=== PATIENT | male | born 1950 | race Caucasian/White ===

== ENCOUNTER 2017-07-12 14:54 | Inpatient (IN) | payer OTHER, MEDICARE ==
[~2017-07-12] VITALS: Ht 175.3 cm; Wt 72.1 kg
[~2017-07-12 14:54] MED LIST: IBUP-1542 PO; TAMS0.4C2 PO
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
[2017-07-12] MEDS ORDERED: NITROGLYCERIN 2% 1 GM OINT PKT TD ONE (15:30)
[2017-07-12 15:37] LABS: BASOPHIL # 0.1 10^3/ul (0.0-0.1); BASOPHILS % 0.5 % (0.0-2.0); EOSINOPHILS # 0.1 10^3/ul (0.0-0.5); HEMATOCRIT 39.2 % (42.0-52.0); HEMOGLOBIN 12.8 g/dl (14.0-18.0); LYMPHOCYTES # 1.3 10^3/ul (0.8-2.9); LYMPHOCYTES % 9.6 % (15.0-51.0); MEAN CORPUSCULAR HEMOGLOBIN 30.5 pg (29.0-33.0); MEAN CORPUSCULAR HGB CONC 32.7 g/dl (32.0-37.0); MEAN CORPUSCULAR VOLUME 93.3 fl (82.0-101.0); MEAN PLATELET VOLUME 12.3 fl (7.4-10.4); MONOCYTES % 7.4 % (0.0-11.0); NEUTROPHILS % 80.9 % (39.0-77.0); PLATELET COUNT 192 10^3/UL (140-415); RED CELL DISTRIBUTION WIDTH 13.9 % (11.5-14.5)
[2017-07-12] MEDS ORDERED: ZOLP5TAB7 PO (15:46)
[2017-07-12] MEDS ORDERED: ATOR40TA68 PO (15:46)
[2017-07-12] MEDS ORDERED: METO-429 PO (15:47)
[2017-07-12 15:51] LABS: INR 1.09; PROTIME 14.1 Sec (12.2-14.2); PT RATIO 1.1
[2017-07-12 15:52] LABS: PARTIAL THROMBOPLASTIN TIME 30.2 Sec (25.0-35.0)
--- NOTE | 2017-07-12 16:03 | RADRPT ---
PROCEDURE: Chest Radiograph. CLINICAL INDICATION: Chest pain TECHNIQUE: Single frontal chest radiograph. COMPARISON: None available FINDINGS: The cardiomediastinal silhouette is within normal limits. Atherosclerotic calcifications are presen t. No infiltrate or effusion is seen. The bones are intact. IMPRESSION: 1. Unremarkable chest radiograph. RPTAT: KK .Alex Rich MD, MD Date Time Electronically viewed and signed by .Alex Rich MD, on 07/12/2017 16:03 .B/
[2017-07-12 16:24] LABS: ANION GAP 13 (8-16); BLOOD UREA NITROGEN 11 mg/dl (7-20); CALCIUM 9.4 mg/dl (8.4-10.2); CARBON DIOXIDE 26 mmol/L (21-31); CHLORIDE 105 mmol/L (97-110); CREATININE 0.87 mg/dl (0.61-1.24); GLUCOSE 120 mg/dl (70-220); POTASSIUM 4.5 mmol/L (3.5-5.1); SODIUM 139 mmol/L (135-144)
[2017-07-12 16:36] LABS: TROPONIN-I < 0.012 ng/ml (0.00-0.12)
[2017-07-12 17:06] LABS: BARBITURATES Negative (NEGATIVE); BENZODIAZEPINES Negative (NEGATIVE); CANNABINOIDS Negative (NEGATIVE); COCAINE Negative (NEGATIVE); OPIATES Negative (NEGATIVE)
--- NOTE | 2017-07-12 19:20 | HP ---
Date/Time of Note Date/Time of Note DATE: 07/12/17 TIME: 19:16 Assessment/Plan VTE Prophylaxis VTE Prophylaxis Intervention: SCD's Lines/Catheters IV Catheter Type (from Nrsg): Saline Lock Assessment/Plan Assessment/Plan 67 yo M with multiple CV risk factors presents with chest pain, prudent to r/o ACS PLAN ACS r/o with trops, tele cont home meds NRT TTE cardiology consult in AM for stress test HPI/ROS Admit Date/Time Admit Date/Time Hx of Present Illness CC chest pain HPI 67 yo M with pmhx htn, HL, tobacco abuse presents with 1 day of chest pain. States it began at 2am and woke him from sleep. Has never had chest pain like this before. Had some SOB which started this afternoon. PMH/Family/Social Social History lives in the community Smoking Status: Current every day smoker Exam/Review of Systems Vital Signs Vitals Vital Signs Date Time Temp Pulse Resp B/P Pulse Ox O2 Delivery O2 Flow Rate FiO2 07/12/17 17:42 42 16 119/49 99 Nasal Cannula 2.0 07/12/17 15:16 98.1 Exam Exam nad eomi bradycardic resp nonlabored abd soft no rashes no edema labs reviewed. WBCs a little high, cr and trop nl Labs Result Diagram: 07/12/17 1520 07/12/17 1520 JAMIE SHEPPARD MD Jul 12, 2017 19:20
[2017-07-12] MEDS ORDERED: DOCUSATE SODIUM 100 MG CAP PO PRN (19:30)
[2017-07-12] MEDS ORDERED: ACETAMINOPHEN 325 MG TAB PO PRN (19:30)
[2017-07-12] MEDS ORDERED: morphine 2 MG INJ IV PRN (19:30)
[2017-07-12] MEDS ORDERED: ZOLPIDEM 5 MG TAB PO PRN (19:30)
[2017-07-12] MEDS ORDERED: NACL 0.9% 3 ML SYG IV SCH (19:30)
[2017-07-12] MEDS ORDERED: HYDROCODONE/APAP (5/325) TAB PO PRN (19:30)
[2017-07-12] MEDS ORDERED: NICOTINE (21 MG/24 HR) PATCH TRANSDERM ONE (19:30)
[2017-07-12] MEDS ORDERED: ONDANSETRON 4 MG TAB PO PRN (19:30)
[2017-07-12 21:06] LABS: THYROID STIMULATING HORMONE 1.09 MIU/L (0.465-4.680)
[2017-07-12] MEDS: ATORVASTATIN 40 MG TAB PO SCH (21:12)
[2017-07-12] MEDS: TAMSULOSIN (SR) 0.4 MG CAP PO SCH (21:12)
[2017-07-12 22:26] LABS: CREATINE KINASE 29 IU/L (23-200)
[2017-07-12 22:39] LABS: CK-MB 0.49 ng/ml (0.0-2.4); TROPONIN-I < 0.012 ng/ml (0.00-0.12)
[2017-07-12 22:51] VITALS: PULSE 60
[2017-07-12 23:46] VITALS: PULSE 40
[2017-07-12 23:57] VITALS: BP 137/60; RESP 18
[2017-07-13] VITALS (13 sets, daily range): BP systolic 124–133; BP diastolic 50–78; PULSE 40–60; RESP 15–18; Ht 175.3 cm; Wt 72.1 kg
[2017-07-13] MEDS: ASPIRIN 81 MG TAB PO SCH (09:03)
[2017-07-13] MEDS: ENOXAPARIN 40 MG/0.4 ML SYG SC SCH (09:03)
--- NOTE | 2017-07-13 12:32 | RADRPT ---
Echocardiogram Report Patient Name: EPI JONES Gender: Male Date: 1950 Study Date: 13-Jul-2017 Celery Stripper: Ricky Rodriges [facility] Location: 5560 Ref. Physician: JAMIE SHEPPARD Quality: Adequate Procedures: Transthoracic echocardiogram with complete 2D, M-Mode, and doppler examination. Indications: Chest Pain. 2D/M Mode Doppler Measurement Value Normal Ranges Measurement Value Normal Ranges LVIDd 2D 4.7 3.5 - 5.6 cm AV Peak Jayson 1.1 m/sec LVIDs 2D 2.3 2.1 - 4.1 cm AV Peak PG 5.1 mmHg LVPWd 2D 0.9 0.6 - 1.1 cm LVOT Peak Jayson 1.0 m/sec IVSd 2D 0.9 0.6 - 1.1 cm LVOT Peak PG 3.8 mmHg AoR Diam 2D 3.4 2.0 - 3.7 cm MV E Peak Jayson 0.9 m/sec EDV 2D 103.2 cm3 MV A Peak Jayson 0.6 m/sec ESV 2D 11.8 cm3 MV E/A 1.6 LA Dimen 2D 4.0 2.3 - 4.0 cm MV Decel Time 213 msec MV Decel [place] 4 MV E/A 1.6 TR Peak Jayson 2.1 m/sec TR Peak PG 17.3 mmHg RVSP 27.0 mmHg Findings Left Ventricle: Normal left ventricular systolic function. Normal left ventricular cavity size. Normal left ventricular wall thickness. Ejection fraction is visually estimated at 65 %. Tissue Doppler/Mitral Doppler indices are within normal limits. Right Ventricle: Normal right ventricular size. Normal right ventricular systolic function. Left Atrium: The left atrium is normal in size. Right Atrium: The right atrium is normal in size. Mitral Valve: Normal appearance of the mitral valve. Mild mitral annular calcification. Trace mitral regurgitation. Aortic Valve: Normal appearance of the aortic valve. No significant aortic stenosis or insufficiency. Tricuspid Valve: Normal appearance of the tricuspid valve. Estimated peak PA systolic pressure 20 mmHg. There is trace tricuspid regurgitation. Pulmonic Valve: Pulmonic valve not well visualized. Pericardium: Normal pericardium with no significant pericardial effusion. Aorta: Normal aortic root. IVC: Normal size and normal respiratory collapse consistent with normal right atrial pressure. Conclusions 1.Normal left ventricular systolic function. Normal left ventricular cavity size. Normal left ventricular wall thickness. Ejection fraction is visually estimated at 65 %. Tissue Doppler/Mitral Doppler indices are within normal limits. 2.Normal appearance of the mitral valve. Mild mitral annular calcification. Trace mitral regurgitation. 3.Normal appearance of the aortic valve. No significant aortic stenosis or insufficiency. 4.Normal appearance of the tricuspid valve. Estimated peak PA systolic pressure 20 mmHg. There is trace tricuspid regurgitation. Electronically Signed By: Adriano Pimentel 13-Jul-2017 12:32:21 -0700 Patient Name: EPI JONES Study Date: 13-Jul-2017 [id number]
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
[2017-07-13] MEDS ORDERED: REGADENOSON 0.4 MG/5 ML SYG IV ONE (16:00)
--- NOTE | 2017-07-13 16:00 | PN ---
Date/Time of Note Date/Time of Note DATE: 07/13/17 TIME: 15:59 Assessment/Plan VTE Prophylaxis VTE Prophylaxis Intervention: SCD's Lines/Catheters IV Catheter Type (from Nrsg): Peripheral IV Assessment/Plan Assessment/Plan 67 yo M with multiple CV risk factors presents with chest pain, ACS ruled out PLAN stress test in AM with cards hold bb given lowish HR cont home statin NRT if stress test negative will start pt on high dose PPI as possible chest discomfort is gerd Subjective 24 Hr Interval Summary Free Text/Dictation Pt reports another episode of chest discomfort again at 2am. Denies heartburn after big meals Exam/Review of Systems Vital Signs Vitals Vital Signs Date Time Temp Pulse Resp B/P Pulse Ox O2 Delivery O2 Flow Rate FiO2 07/13/17 15:39 98.2 59 18 131/78 98 07/12/17 22:26 Room Air 07/12/17 17:42 2.0 Exam nad no mrg lungs clear abd soft no rashes trops nl, TTE with nl EF Results Result Diagram: 07/12/17 1520 07/12/17 1520 Results 24 hrs Laboratory Tests Test 07/12/17 16:25 07/12/17 21:20 Urine Opiates Screen Negative Urine Barbiturates Negative Urine Amphetamines Screen Negative Urine Benzodiazepines Screen Negative Urine Cocaine Screen Negative Urine Cannabinoids Negative Creatine Kinase 29 Creatine Kinase Index 1.7 Creatinine Kinase MB (Mass) 0.49 Troponin I < 0.012 Medications Medications Current Medications Ondansetron HCl (Zofran Tab) 4 mg Q6H PRN PO NAUSEA AND/OR VOMITING; Start at 19:30 Aspirin (Aspirin) 81 mg DAILY PO Last administered on 07/13/17t 09:03; Admin Dose 81 MG; Start 07/13/17 at 09:00 Acetaminophen (Tylenol Tab) 650 mg Q6H PRN PO PAIN LEVEL 1-3 OR FEVER; Start at 19:30 Acetaminophen/ Hydrocodone Bitart ([place] (5/325)) 1 tab Q6H PRN PO PAIN LEVEL 4 -6; Start 07/12/17 at 19:30 Morphine Sulfate (morphine) 2 mg Q4H PRN IV PAIN LEVEL 7-10; Start 07/12/17 at 19:30 Docusate Sodium (Colace) 100 mg Q12H PRN PO CONSTIPATION; Start 07/12/17 at 19: 30 Enoxaparin Sodium (Lovenox) 40 mg DAILY SC Last administered on 07/13/17 09:03 ; Admin Dose 40 MG; Start 07/13/17 at 09:00 Atorvastatin Calcium (Lipitor) 40 mg QHS PO Last administered on 07/12/17 21: 12; Admin Dose 40 MG; Start 07/12/17 at 21:00 Tamsulosin HCl (Flomax) 0.4 mg HS PO Last administered on 07/12/17 21:12; Admin Dose 0.4 MG; Start 07/12/17 at 21:00 Zolpidem Tartrate (Ambien) 5 mg QHS PRN PO INSOMNIA Last administered on 21:12; Admin Dose 5 MG; Start 07/12/17 at 19:30 Regadenoson (Lexiscan) 0.4 mg ONCE ONCE IV ; Start 07/13/17 at 16:00; Stop at 16:01 JAMIE SHEPPARD MD Jul 13, 2017 16:00
[2017-07-13] MEDS ORDERED: PANTOPRAZOLE (EC) 40 MG TAB PO SCH (18:00)
[2017-07-13] MEDS: TAMSULOSIN (SR) 0.4 MG CAP PO SCH (20:48)
[2017-07-13] MEDS: ATORVASTATIN 40 MG TAB PO SCH (20:48)
[2017-07-14] VITALS (14 sets, daily range): BP systolic 121–133; BP diastolic 53–78; PULSE 40–60; RESP 17–20
[2017-07-14] MEDS: ASPIRIN 81 MG TAB PO SCH (09:06)
[2017-07-14 09:07] LABS: BASOPHIL # 0.1 10^3/ul (0.0-0.1); EOSINOPHILS # 0.3 10^3/ul (0.0-0.5); EOSINOPHILS % 4.3 % (0.0-7.0); HEMATOCRIT 37.2 % (42.0-52.0); HEMOGLOBIN 12.4 g/dl (14.0-18.0); LYMPHOCYTES # 1.9 10^3/ul (0.8-2.9); LYMPHOCYTES % 24.3 % (15.0-51.0); MEAN CORPUSCULAR HEMOGLOBIN 30.9 pg (29.0-33.0); MEAN CORPUSCULAR HGB CONC 33.3 g/dl (32.0-37.0); MEAN CORPUSCULAR VOLUME 92.8 fl (82.0-101.0); MEAN PLATELET VOLUME 12.3 fl (7.4-10.4); MONOCYTE # 0.7 10^3/ul (0.3-0.9); MONOCYTES % 8.5 % (0.0-11.0); NEUTROPHILS % 61.4 % (39.0-77.0); PLATELET COUNT 175 10^3/UL (140-415); RED BLOOD COUNT 4.01 10^6/ul (4.70-6.10); RED CELL DISTRIBUTION WIDTH 13.5 % (11.5-14.5)
[2017-07-14] MEDS: ENOXAPARIN 40 MG/0.4 ML SYG SC SCH (09:07)
--- NOTE | 2017-07-14 09:09 | CONS ---
Date/Time of Note Date/Time of Note DATE: 07/14/17 TIME: 09:08 Assessment/Plan Assessment/Plan Chief Complaint/Hosp Course Chest pain: Somewhat atypical and trops negative. However pt is an active smoker and has CAD risk factors. Echo is normal. May be GI in etiology. Will proceed with stress testing. Active tobacco use: counseled on cessation HL -continue ASA, lipitor -no metoprolol with baseline bradycardia -stress test today. If normal, ok for d/c Problems: Consultation Date/Type/Reason Admit Date/Time Jul 12, 2017 at 17:47 Initial Consult Date 07/13/17 Type of Consultation: Cardiology Referring Provider: JAMIE SHEPPARD MD 24 HR Interval Summary Free Text/Dictation No o/n events. Mild discomfort again this am. Plan for nuc today Exam/Review of Systems Vital Signs Vitals Vital Signs Date Time Temp Pulse Resp B/P Pulse Ox O2 Delivery O2 Flow Rate FiO2 07/14/17 08:51 55 07/14/17 07:32 97.8 18 124/56 98 07/12/17 22:26 Room Air 07/12/17 17:42 2.0 Intake and Output 07/13/17 07/13/17 07/14/17 15:00 23:00 07:00 Intake Total 600 ml Balance 600 ml Results Result Diagram: 07/12/17 1520 07/12/17 1520 Results 24 hrs Laboratory Tests Test 07/14/17 08:11 White Blood Count Pending Red Blood Count Pending Hemoglobin Pending Hematocrit Pending Mean Corpuscular Volume Pending Mean Corpuscular Hemoglobin Pending Mean Corpuscular Hemoglobin Concent Pending Red Cell Distribution Width Pending Platelet Count Pending Mean Platelet Volume Pending Medications Medications Current Medications Ondansetron HCl (Zofran Tab) 4 mg Q6H PRN PO NAUSEA AND/OR VOMITING; Start at 19:30 Aspirin (Aspirin) 81 mg DAILY PO Last administered on 07/14/17t 09:06; Admin Dose 81 MG; Start 07/13/17 at 09:00 Acetaminophen (Tylenol Tab) 650 mg Q6H PRN PO PAIN LEVEL 1-3 OR FEVER; Start at 19:30 Acetaminophen/ Hydrocodone Bitart ([place] (5/325)) 1 tab Q6H PRN PO PAIN LEVEL 4 -6; Start 07/12/17 at 19:30 Morphine Sulfate (morphine) 2 mg Q4H PRN IV PAIN LEVEL 7-10; Start 07/12/17 at 19:30 Docusate Sodium (Colace) 100 mg Q12H PRN PO CONSTIPATION; Start 07/12/17 at 19: 30 Enoxaparin Sodium (Lovenox) 40 mg DAILY SC Last administered on 07/14/17 09:07 ; Admin Dose 40 MG; Start 07/13/17 at 09:00 Atorvastatin Calcium (Lipitor) 40 mg QHS PO Last administered on 07/13/17 20: 48; Admin Dose 40 MG; Start 07/12/17 at 21:00 Tamsulosin HCl (Flomax) 0.4 mg HS PO Last administered on 07/13/17 20:48; Admin Dose 0.4 MG; Start 07/12/17 at 21:00 Zolpidem Tartrate (Ambien) 5 mg QHS PRN PO INSOMNIA Last administered on 21:12; Admin Dose 5 MG; Start 07/12/17 at 19:30 Regadenoson (Lexiscan) 0.4 mg ONCE ONCE IV ; Start 07/14/17 at 15:00; Stop at 15:01 ROXI YI Jul 14, 2017 09:09
[2017-07-14 09:13] LABS: CHOL/HDL RATIO 2.8 RATIO
[2017-07-14] MEDS ORDERED: REGADENOSON 0.4 MG/5 ML SYG ONE (09:47)
--- NOTE | 2017-07-14 11:45 | RADRPT ---
PROCEDURE: Lexiscan myocardial perfusion study CLINICAL INDICATION: Chest pain TECHNIQUE: Lexiscan 0.4 mg intravenously separate acquisition gated myocardial SPECT images using Tc 99m Myoview 10 mCi intravenously at rest and Tc 99m Myoview approximately 30.0 mCi intravenously at stress were obtained using the rest/stress sequence. Poststress Myoview SPECT images were perfor med in the supine position only. COMPARISON: No prior studies. FINDINGS: Perfusion images reveal no evidence of perfusion defects. Lexiscan poststress gated SPECT images demonstrate no wall motion abnormalities. IMPRESSION: 1. No evidence of perfusion defects. 2. Mild hypokinesis of the left ventricle. 3. The left ventricle ejection fraction at stress is 73% RPTAT: QQ Physician Mamadou Date Time Electronically viewed and signed by Physician Mamadou on 07/14/2017 11:45 /
[2017-07-14] MEDS ORDERED: PANT40TA4 PO (13:13)
--- NOTE | 2017-07-14 13:19 | PDOCDIS ---
Discharge Instructions CONDITION Patient Condition: Good HOME CARE INSTRUCTIONS: Diet Instructions: Low Fat /Cholesterol FOLLOW UP/APPOINTMENTS Follow-up Plan Given that your stress test was normal, it's unlikely the pain you were experiencing was due to your heart. Sometimes people can have really bad heartburn/acid reflux that can feel like chest pain. I have prescribed a high dose stomach acid pill. Take this pill twice daily and follow up with your regular doctor within 4 weeks to see if he/she wants to keep you on this medicine. Also, your heart rate was a little on the low side while you were in the hospital. Therefore, we have stopped your blood pressure pill/metoprolol. Your blood pressure in the hospital has been ok. STAY OFF THE METOPROLOL. Please follow up with your regular doctor within 1-2 weeks for a blood pressure check to see if he/she would want you to start back on the metoprolol or start a different blood pressure pill instead. STOP SMOKING. Talk to your regular doctor about smoking cessation. JAMIE SHEPPARD MD Jul 14, 2017 13:19
--- NOTE | 2017-07-14 13:30 | DS ---
Date/Time of Note Date/Time of Note DATE: 07/14/17 TIME: 13:19 Discharge Summary Admission/Discharge Info Admit Date/Time Jul 12, 2017 at 17:47 Discharge Date/Time Discharge Diagnosis chest pain Patient Condition: Good Consults cardiology Procedures 23: NM stress test: prelim result negative at time of discharge Chemistry Test 07/12/17 15:20 07/12/17 21:20 07/14/17 08:11 Sodium Level 139mmol/L (135-144) Potassium Level 4.5mmol/L (3.5-5.1) Chloride Level 105mmol/L (97-110) Carbon Dioxide Level 26mmol/L (21-31) Anion Gap 13 (8-16) Blood Urea Nitrogen 11mg/dl (7-20) Creatinine 0.87mg/dl (0.61-1.24) Glucose Level 120mg/dl (70-220) Calcium Level 9.4mg/dl (8.4-10.2) B-Type Natriuretic Peptide 643PG/ML (0-125) Thyroid Stimulating Hormone (TSH) 1.090MIU/L (0.465-4.680) Creatine Kinase 29IU/L (23-200) Creatine Kinase Index 1.7 Creatinine Kinase MB (Mass) 0.49ng/ml (0.0-2.4) Troponin I < 0.012ng/ml (0.00-0.12) Hemoglobin A1c 5.4% (0-5.9) Triglycerides Level 79mg/dl (0-149) Cholesterol Level 83mg/dl (100-200) LDL Cholesterol, Calculated 38mg/dl HDL Cholesterol 29mg/dl (30-78) Cholesterol/HDL Ratio 2.8RATIO 8.22 TTE Conclusions 1. Normal left ventricular systolic function. Normal left ventricular cavity size. Normal left ventricular wall thickness. Ejection fraction is visually estimated at 65 %. Tissue Doppler/Mitral Doppler indices are within normal limits. 2. Normal appearance of the mitral valve. Mild mitral annular calcification. Trace mitral regurgitation. 3. Normal appearance of the aortic valve. No significant aortic stenosis or insufficiency. 4. Normal appearance of the tricuspid valve. Estimated peak PA systolic pressure 20 mmHg. There is trace tricuspid regurgitation. Hx of Present Illness CC chest pain HPI 67 yo M with pmhx htn, HL, tobacco abuse presents with 1 day of chest pain. States it began at 2am and woke him from sleep. Has never had chest pain like this before. Had some SOB which started this afternoon. Hospital Course Pt admitted for chest pain. Ruled out for ACS with serial troponins. Stress test done given CV risk factors negative on date of discharge. Possible chest discomfort is GERD so pt started on high dose PPI and PCP f/u advised. BB held given HR in 40s-50s. Pt advised to f/u with PCP for further BP management. Smoking cessation advised Home Meds Active Scripts Pantoprazole* (Pantoprazole*) 40 Mg Tablet.dr, 40 MG PO BID for 30 Days, #60 TAB Prov:JAMIE SHEPPARD MD 07/14/17 Reported Medications Metoprolol Tartrate* (Lopressor*) 50 Mg Tab, 50 MG PO BID, #60 TAB 07/12/17 Zolpidem Tartrate* (Zolpidem Tartrate*) 5 Mg Tablet, 5 MG PO QHS Y for INSOMNIA , #30 TAB 07/12/17 Atorvastatin* (Atorvastatin*) 40 Mg Tablet, 40 MG PO QHS, #30 TAB 07/12/17 Tamsulosin Hcl* (Tamsulosin Hcl*) 0.4 Mg Cap.er.24h, 0.4 MG PO HS, CAP 06/11/16 Discontinued Scripts Ibuprofen* (Motrin*) 600 Mg Tab, 600 MG PO Q6H Y for PAIN AND OR ELEVATED TEMP, #15 TAB Prov:RAO WILKINSON MD 06/11/16 Follow-up Plan holding bb start high dose PPI f/u with PCP within 1-2 weeks for BP check and eval to continue PPI Primary Care Provider Not On Staff Doctor Pending Labs Laboratory Tests Test 07/14/17 08:11 White Blood Count 8.010^3/ul (4.8-10.8) Red Blood Count 4.0110^6/ul (4.70-6.10) Hemoglobin 12.4g/dl (14.0-18.0) Hematocrit 37.2% (42.0-52.0) Mean Corpuscular Volume 92.8fl (82.0-101.0) Mean Corpuscular Hemoglobin 30.9pg (29.0-33.0) Mean Corpuscular Hemoglobin Concent 33.3g/dl (32.0-37.0) Red Cell Distribution Width 13.5% (11.5-14.5) Platelet Count 60919^3/UL (140-415) Mean Platelet Volume 12.3fl (7.4-10.4) Neutrophils % 61.4% (39.0-77.0) Lymphocytes % 24.3% (15.0-51.0) Monocytes % 8.5% (0.0-11.0) Eosinophils % 4.3% (0.0-7.0) Basophils % 1.0% (0.0-2.0) Nucleated Red Blood Cells % 0.0/100WBC (0.0-0.0) Neutrophils # (Manual) 510^3/ul (1.7-7.5) Lymphocytes # 1.910^3/ul (0.8-2.9) Monocytes # 0.710^3/ul (0.3-0.9) Eosinophils # 0.310^3/ul (0.0-0.5) Basophils # 0.110^3/ul (0.0-0.1) Nucleated Red Blood Cells # 0.010^3/ul (0.0-0.0) Hemoglobin A1c 5.4% (0-5.9) Triglycerides Level 79mg/dl (0-149) Cholesterol Level 83mg/dl (100-200) LDL Cholesterol, Calculated 38mg/dl HDL Cholesterol 29mg/dl (30-78) Cholesterol/HDL Ratio 2.8JAMIE LOVE MD Jul 14, 2017 13:29
[2017-07-14] MEDS ORDERED: REGADENOSON 0.4 MG/5 ML SYG IV ONE (15:00)
--- NOTE | 2017-07-14 15:50 | OPR ---
Date/Time of Note Date/Time of Note DATE: 07/14/17 TIME: 15:49 Operative Report Free Text/Dictation Nuclear medicine myocardial perfusion imaging: Date: 07/14/2017 Indication: 67 yo M tobacco user with chest pain After informed consent, the patient was given IV Lexiscan. Pt was monitored for a total of 8 minutes post-infusion without any sings of arrhythmias. Patient had no chest pain or EKG changes. Please refer to separate note for imaging results. ROXI YI Jul 14, 2017 15:50
[2017-07-14] MEDS: TAMSULOSIN (SR) 0.4 MG CAP PO SCH (20:40)
[2017-07-14] MEDS: ATORVASTATIN 40 MG TAB PO SCH (20:40)
[2017-07-15 04:20] VITALS: BP 120/55; RESP 17
[2017-07-15 07:38] VITALS: BP 117/71; RESP 18
[2017-07-15] MEDS: ASPIRIN 81 MG TAB PO SCH (08:42)
--- NOTE | 2017-07-15 08:45 | DS ---
Date/Time of Note Date/Time of Note DATE: 07/15/17 TIME: 08:43 Discharge Summary Admission/Discharge Info Admit Date/Time Jul 12, 2017 at 17:47 Discharge Date/Time Discharge Diagnosis chest pain Patient Condition: Good Consults cardiology Procedures 8.23: NM stress test: negative Chemistry Test 07/12/17 15:20 07/12/17 21:20 07/14/17 08:11 Sodium Level 139mmol/L (135-144) Potassium Level 4.5mmol/L (3.5-5.1) Chloride Level 105mmol/L (97-110) Carbon Dioxide Level 26mmol/L (21-31) Anion Gap 13 (8-16) Blood Urea Nitrogen 11mg/dl (7-20) Creatinine 0.87mg/dl (0.61-1.24) Glucose Level 120mg/dl (70-220) Calcium Level 9.4mg/dl (8.4-10.2) B-Type Natriuretic Peptide 643PG/ML (0-125) Thyroid Stimulating Hormone (TSH) 1.090MIU/L (0.465-4.680) Creatine Kinase 29IU/L (23-200) Creatine Kinase Index 1.7 Creatinine Kinase MB (Mass) 0.49ng/ml (0.0-2.4) Troponin I < 0.012ng/ml (0.00-0.12) Hemoglobin A1c 5.4% (0-5.9) Triglycerides Level 79mg/dl (0-149) Cholesterol Level 83mg/dl (100-200) LDL Cholesterol, Calculated 38mg/dl HDL Cholesterol 29mg/dl (30-78) Cholesterol/HDL Ratio 2.8RATIO 8.22 TTE Conclusions 1. Normal left ventricular systolic function. Normal left ventricular cavity size. Normal left ventricular wall thickness. Ejection fraction is visually estimated at 65 %. Tissue Doppler/Mitral Doppler indices are within normal limits. 2. Normal appearance of the mitral valve. Mild mitral annular calcification. Trace mitral regurgitation. 3. Normal appearance of the aortic valve. No significant aortic stenosis or insufficiency. 4. Normal appearance of the tricuspid valve. Estimated peak PA systolic pressure 20 mmHg. There is trace tricuspid regurgitation. Hx of Present Illness CC chest pain HPI 67 yo M with pmhx htn, HL, tobacco abuse presents with 1 day of chest pain. States it began at 2am and woke him from sleep. Has never had chest pain like this before. Had some SOB which started this afternoon. Hospital Course Pt admitted for chest pain. Ruled out for ACS with serial troponins. Stress test done given CV risk factors negative on date of discharge. Possible chest discomfort is GERD so pt started on high dose PPI and PCP f/u advised. BB held given HR in 40s-50s. Pt advised to f/u with PCP for further BP management. Smoking cessation advised Discharge delayed x 24 hours as pt requested to go to a SNF instead of his previous care home, SNF found patient. Home Meds Active Scripts Pantoprazole* (Pantoprazole*) 40 Mg Tablet.dr, 40 MG PO BID for 30 Days, #60 TAB Prov:JAMIE SHEPPARD MD 07/14/17 Reported Medications Zolpidem Tartrate* (Zolpidem Tartrate*) 5 Mg Tablet, 5 MG PO QHS Y for INSOMNIA , #30 TAB 07/12/17 Atorvastatin* (Atorvastatin*) 40 Mg Tablet, 40 MG PO QHS, #30 TAB 07/12/17 Tamsulosin Hcl* (Tamsulosin Hcl*) 0.4 Mg Cap.er.24h, 0.4 MG PO HS, CAP 06/11/16 Discontinued Reported Medications Metoprolol Tartrate* (Lopressor*) 50 Mg Tab, 50 MG PO BID, #60 TAB 07/12/17 Discontinued Scripts Ibuprofen* (Motrin*) 600 Mg Tab, 600 MG PO Q6H Y for PAIN AND OR ELEVATED TEMP, #15 TAB Prov:RAO WILKINSON MD 06/11/16 Follow-up Plan holding bb start high dose PPI f/u with PCP within 1-2 weeks for BP check and eval to continue PPI Primary Care Provider Not On Staff Doctor Time spent on discharge: > 30 minutes JAMIE SHEPPARD MD Jul 15, 2017 08:45
[2017-07-15] MEDS: ENOXAPARIN 40 MG/0.4 ML SYG SC SCH (08:46)
--- NOTE | 2017-07-15 11:26 | CONS ---
Date/Time of Note Date/Time of Note DATE: 07/15/17 TIME: 11:24 Assessment/Plan Assessment/Plan Chief Complaint/Hosp Course Chest pain: Somewhat atypical and trops negative. However pt is an active smoker and has CAD risk factors. Echo is normal. Lexiscan MPI negative. May be GI in etiology. Active tobacco use: counseled on cessation HL -continue ASA, lipitor -no metoprolol with baseline bradycardia -ok for d/c Problems: Consultation Date/Type/Reason Admit Date/Time Jul 12, 2017 at 17:47 Initial Consult Date 07/13/17 Type of Consultation: Cardiology Referring Provider: JAMIE SHEPPARD MD 24 HR Interval Summary Free Text/Dictation No o/n events. Awaiting placement Exam/Review of Systems Vital Signs Vitals Vital Signs Date Time Temp Pulse Resp B/P Pulse Ox O2 Delivery O2 Flow Rate FiO2 07/15/17 07:38 97.8 74 18 117/71 99 07/12/17 22:26 Room Air 07/12/17 17:42 2.0 Intake and Output 07/14/17 07/14/17 07/15/17 15:00 23:00 07:00 Intake Total 800 ml 350 ml Balance 800 ml 350 ml Exam Constitutional: alert, oriented Psych: nl mood/affect, no complaints Head: atraumatic, normocephalic Neck: No jvd Respiratory: clear to auscultation, No crackles/rales Cardiovascular: regular rate and rhythm, No edema, No systolic murmur Gastrointestinal: non-tender, soft Extremities: normal pulses Neurological: nl mental status, nl speech Results Result Diagram: 07/14/17 0811 07/12/17 1520 ROXI YI Jul 15, 2017 11:25
== END 2017-07-15 10:44 | DRG 313 ==
LOC: E/R 14:54 → MS4 17:47 → E/R 22:38
PROVIDERS: ADMIT Internal Medicine; ATTEND Internal Medicine
DX: R07.9 Chest pain, unspecified (principal); I25.10 Atherosclerotic heart disease of native coronary artery without angina pectoris; I10 Essential (primary) hypertension; E78.5 Hyperlipidemia, unspecified; F17.210 Nicotine dependence, cigarettes, uncomplicated; G47.00 Insomnia, unspecified; K21.9 Gastro-esophageal reflux disease without esophagitis; Z85.46 Personal history of malignant neoplasm of prostate; Z79.82 Long term (current) use of aspirin
CPT/HCPCS: 36415; 71010; 78452; 80048; 80061; 80306; 80307; 82550; 82553; 83036; 83880; 84443; 84484; 85025; 85610; 85730; 93005; 93017; 93306; A9500; A9505; J1650; J2785